=== PATIENT | male | born 1975 | race Caucasian/White ===

== ENCOUNTER 2022-02-09 18:14 | Emergency (ER) | payer OTHER | END 2022-02-09 19:35 | disposition home or self-care (01) | LOC: ER 18:14 | DX: S62.616A Displaced fracture of proximal phalanx of right little finger, initial encounter for closed fracture (principal); S62.366A Nondisplaced fracture of neck of fifth metacarpal bone, right hand, initial encounter for closed fracture; V29.9XXA Motorcycle rider (driver) (passenger) injured in unspecified traffic accident, initial encounter; Z88.5 Allergy status to narcotic agent; Z88.2 Allergy status to sulfonamides ==